=== PATIENT | female | born 1995 | race Caucasian/White ===

== ENCOUNTER 2021-03-15 14:07 | Outpatient (REF) | payer OTHER, SELFPAY ==
[2021-03-15 15:05] LABS: Influenza A PCR NEGATIVE (Negative); Influenza B PCR NEGATIVE (Negative); Resp Syncy Virus RNA Qual PCR NEGATIVE (Negative); SARS COV2 PCR INHOUSE NEGATIVE (Negative)
== END 2021-03-15 14:08 | disposition home or self-care (01) ==
LOC: HO.LNP 14:07
PROVIDERS: Visit Provider Physician Assistant Medical
DX: J06.9 Acute upper respiratory infection, unspecified (principal); Z20.822 Contact with and (suspected) exposure to COVID-19
CPT/HCPCS: 0241U

== ENCOUNTER 2022-09-17 15:46 | Emergency (ER) | payer SELFPAY ==
--- NOTE | ~2022-09-17 | CT_ITS ---
EXAMINATION: CT head/brain wo IV con CLINICAL INFORMATION: Reason for Exam R sided hearing losss new onset headache COMPARISON: None. TECHNIQUE: Contiguous axial imaging was performed from the skull base to vertex without intravenous contrast. Sagittal and coronal reformatted images were obtained. This CT examination was performed using dose optimization techniques as appropriate, variously including the following: * Automated exposure control * Adjustment of mA and/or kV according to patient size (this includes techniques or standardized protocols for targeted exams where dose is matched to indication/reason for exam; i.e. extremities or head) Use of iterative reconstruction technique DLP: 671.92 mGy-cm FINDINGS: No acute osseous or soft tissue abnormality. Partial opacification of the right mastoid air cells and middle ear cavity. There is no evidence of acute intracranial hemorrhage or territorial infarction. No abnormal mass effect or midline shift is seen. Marie to white matter differentiation is well preserved. No extra-axial fluid collections are identified. No hydrocephalus. No significant volume loss. There is no abnormal attenuation within the brain parenchyma. CT/CT head/brain wo IV con IMPRESSION: 1. No acute intracranial abnormality including hemorrhage, mass effect, hydrocephalus, or acute territorial edematous infarction. 2. Partial opacification of the right mastoid and middle ear cavity. Correlate clinically for otomastoiditis.
[2022-09-17 16:21] VITALS: BP 141/89; PULSE 85; RESP 18; TEMP 36.8; O2SAT 96; BMI 51.6
--- NOTE | 2022-09-17 16:22 | ED_ITS ---
HPI - Ear Problem General Chief complaint: Ear Problems <DARI Holliday Last Filed: 09/17/22 19:08> Stated complaint: cant hear out right ear <DARI Holliday Last Filed: 09/17/22 19:08> Time Seen by Provider: 09/17/22 19:40 <DARI Holliday Last Filed: 09/17/22 19:08> Source: patient <DARI Light Last Filed: 09/18/22 00:11> Mode of arrival: ambulatory <DARI Light Last Filed: 09/18/22 00:11> Limitations: no limitations <DARI Light Last Filed: 09/18/22 00:11> History of Present Illness HPI Narrative: This is a 27-year-old female presenting to the emergency department for evaluation of headaches for the past 2 weeks that have been intermittent in nature as well as severe right-sided ear pain x2 days worsening. Patient reports ear pain is worse with movement of here and she feels like her ear is muffled. This is never happened to her before. Reports that headaches are localized to the occipital region of head particularly the left side and travel forward towards her forehead, describes some is severe, throbbing and tells me she has to take ibuprofen a few times a day, she has never had migraines before. No head trauma. Not on blood thinners. Denies fevers, chills, chest pain, shortness of breath, visual disturbances, weakness, nausea, vomiting, abdominal pain, URI symptoms. <DARI Light Last Filed: 09/18/22 00:11> Related Data Home medications: Previous Rx's Medication Instructions Recorded ciprofloxacin HCl 500 mg tablet 500 mg PO BID 10 days #20 tabs 09/18/22 <DARI Holliday Last Filed: 09/17/22 19:08> Allergies/adverse reactions: Allergies Allergy/AdvReac Type Severity Reaction Status Date / Time metoclopramide [From Reglan] Allergy pain in Verified 03/15/21 12:44 arm and trouble breathing <DARI Holliday Last Filed: 09/17/22 19:08> Review of Systems Review of Systems: Constitutional : No Weight loss, No Fever, No Chills, No Fatigue, No Malaise ENT/Mouth : No sore throat, No Rhinorrhea, + ear pain Eyes: No Eye Pain, No Swelling, No Redness Cardiovascular : No Chest Pain, No SOB, No Dyspnea on Exertion, No Orthopnea, No Edema, No Palpitations Respiratory : No Cough, No Sputum, No Wheezing Gastrointestinal : No Nausea, No Vomiting, No Diarrhea, No Constipation, No abdominal Pain, No Hematochezia, No Melena Genitourinary : No Dysuria, No Urinary Frequency, No Hematuria, Musculoskeletal : No joint pain, No Myalgias, No Joint Swelling Skin : No Skin Lesions, No rash Neuro : No Weakness, No Numbness, No Dizziness, No Headache Psych : No Anxiety/Panic, No Depression All other systems reviewed and are negative <DARI Light - Last Filed: 09/18/22 00:11> Yes all other systems are reviewed and are negative <DARI Light - Last Filed: 09/18/22 00:11> [facility] Past Medical History Attestation statement: The following information was validated with the patient. <DARI Light - Last Filed: 09/18/22 00:11> Source: old records reviewed and nursing notes reviewed <DARI Light - Last Filed: 09/18/22 00:11> Social History Social History: Social History Alcohol intake: never Smoked in Last 30 Days: No Use of substances other than those prescribed or required for medical reasons: No Advance Directives: No Advance Directives Information Provided: No <DARI Holliday Last Filed: 09/17/22 19:08> Physical Exam Vital Signs: Vital Signs: Last Vital Signs Temp 98.2 F 09/17/22 16:21 Pulse 82 09/17/22 19:45 Resp 16 09/17/22 19:45 BP 114/87 09/17/22 19:45 Pulse Ox 98 09/17/22 19:45 O2 Del Method Room Air 09/17/22 19:45 BMI result Body Mass Index 51.6 <DARI Holliday Last Filed: 09/17/22 19:08> Vital Signs: Last Vital Signs Temp 98.2 F 09/17/22 16:21 Pulse 82 09/17/22 19:45 Resp 16 09/17/22 19:45 BP 114/87 09/17/22 19:45 Pulse Ox 98 09/17/22 19:45 O2 Del Method Room Air 09/17/22 19:45 BMI result Body Mass Index 51.6 vss <DARI Light - Last Filed: 09/18/22 00:11> Appearance: Alert.? Oriented X3.? No acute distress.? Head: Normocephalic, atraumatic, no step-offs or deformities Eyes: Pupils equal, round and reactive to light.? ENT: Pharynx normal.? Patient's right ear with small all area of dry ear wax visualize above the tympanic membrane, erythematous ear canal and discomfort with palpation/manipulation of external ear. Normal left ear. No mastoid tenderness bilaterally. Decreased gross hearing to right ear when compared to left. Neck: Normal inspection.? Neck supple.? CVS: Normal heart rate and rhythm.? Pulses normal.? Respiratory: No respiratory distress.? Breath sounds normal.? Abdomen: Soft and nontender.? Skin: Skin warm and dry.? Normal skin color.? Normal skin turgor.? Extremities: No lower extremity edema.? No calf ttp. 5/5 strength to bilateral upper and lower extremities Neuro: Oriented X 3.? No motor deficit.? No sensory deficit. CN 2-12 intact . Ambulating with steady gait normal coordination. Normal rapid alternating movements, normal [id number]-[id number]-mmzz and yyez-[id number]-yzrg. <DARI Light - Last Filed: 09/18/22 00:11> Course Course Course Narrative: RME--27yo F c/o R ear pain x yesterday with hearing loss since this AM. +tragus pain with canal swelling and visible wax vs ?bug. TM cloudy Patient will need ear irrigated for potential FB <DARI Holliday - Last Filed: 09/17/22 19:08> Reevaluation(s) Reevaluation #1: CT scan showing partial opacification of the right mastoid and middle ear cavity correlating with otomastoiditis. This is the year that patient is compl aining of pain to. I did discuss this case with my attending recommended this likely will require IV antibiotics. Discussed with the hospitalist who tells me that this will require higher level of care in a facility that has ears nose and throat. Call out to [facility] however [facility] at capacity and closed to transfers. Call out to [facility] pending call back <DARI Light - Last Filed: 09/18/22 00:11> Time: 23:00 <DARI Light - Last Filed: 09/18/22 00:11> Reevaluation #2: [facility] closed to transfers. I did speak to the [facility] and requested an ears Nose and Throat consult and was able to speak to Dr. Painter who recommends treating this with ciprofloxacin 500 mg p.o. b.i.d., he recommends outpatient ENT follow-up. No need for hospital admission for IV antibiotics. He states ciprofloxacin will cover for Staph, strep as well as Pseudomonas. I did go over CT results with him as well as exam findings. Patient will be discharged at this time. Will give her ENT follow-up. Educated on worrisome signs and sym ptoms and when to return. Patient verbalizes understanding. I did educate patient on black box warnings of ciprofloxacin. Verbalizes understanding <DARI Light - Last Filed: 09/18/22 00:11> Time: 00:11 <DARI Light - Last Filed: 09/18/22 00:11> Medications Administered Discontinued Medications Generic Name Dose Route Start Last Admin Trade Name Freq PRN Reason Stop Dose Admin Sodium Chloride 1,000 mls @ 999 mls/hr 09/17/22 21:30 09/17/22 21:48 Ns IV 09/17/22 22:30 Not Given .Q1H1M LUIS <DARI Holliday - Last Filed: 09/17/22 19:08> Medications Administered Discontinued Medications Generic Name Dose Route Start Last Admin Trade Name Freq PRN Reason Stop Dose Admin Sodium Chloride 1,000 mls @ 999 mls/hr 09/17/22 21:30 09/17/22 21:48 Ns IV 09/17/22 22:30 Not Given .Q1H1M LUIS <DARI Light - Last Filed: 09/18/22 00:11> Medical Decision Making Medical Decision Making [facility] Narrative: 27 year old female presents w/ new onset headaches x few weeks and ear pain. PE w/ Patient's right ear with small all area of dry ear wax visualize above the tympanic membrane, erythematous ear canal and discomfort with palpation/manipulation of external ear. Normal left ear. No mastoid tenderness bilaterally. Decreased gross hearing to right ear when compared to left. Concerns for mastoiditis and otitis externa. Likley typical headache unlikley ICH, Stroke, posterior stroke. Will rule out intra cranial mass. Plan- imaging of head <DARI Light - Last Filed: 09/18/22 00:11> Differential Diagnosis Differential Diagnoses: The differential diagnosis associated with the presentation includes <DARI Light - Last Filed: 09/18/22 00:11> Concerns for mastoiditis and otitis externa. Likley typical headache unlikley ICH, Stroke, posterior stroke. Will rule out intra cranial mass. <DARI Light - Last Filed: 09/18/22 00:11> Admission/Observation Consideration of admission/observation: Escalation of care including admission/observation considered <DARI Light - Last Filed: 09/18/22 00:11> possible if mastoiditis <DARI Light - Last Filed: 09/18/22 00:11> Consult Healthcare Provider Management of the patient was discussed with: Hospitalist (Hospitalist who do not feel as though patient can stay in this facility ) and Video Game Script Writer (Dr. Painter ENT [facility] [place] ) <DARI Light - Last Filed: 09/18/22 00:11> Lab Data [facility] Lab Attestation statement: I reviewed the patient's lab results. <DARI Light - Last Filed: 09/18/22 00:11> Result Diagrams: 09/17/22 22:24 09/17/22 22:24 <DARI Holliday - Last Filed: 09/17/22 19:08> Labs: Lab Results 09/17/22 09/17/22 09/17/22 Range/Units 22:24 22:24 22:24 WBC 8.7 (4.8-10.8) X10*3/uL RBC 4.32 (4.20-5.50) X10*6/uL Hgb 12.7 (12.0-16.0) g/dl Hct 38.3 (37.0-47.0) % MCV 88.7 (80.0-98.0) fL MCH 29.4 (27.0-33.0) pg MCHC 33.2 (31.0-35.0) g/dl RDW 13.1 (11.0-16.0) % Plt Count 205 (160-400) X10*3/uL MPV 10.9 (9.4-12.3) fL Immature Gran % (Auto) 0.3 (0.0-0.4) % Neut % (Auto) 65.2 (45-73) % Lymph % (Auto) 24.3 (20-40) % [place] % (Auto) 7.9 (2-11) % Eos % (Auto) 1.8 (0-4) % Baso % (Auto) 0.5 (0-2) % Lymph # (Auto) 2.1 (1.2-4.9) X10*3/uL [place] # (Auto) 0.7 (0.1-1.2) X10*3/uL Eos # (Auto) 0.2 (0.0-0.4) X10*3/uL Baso # (Auto) 0.0 (0.0-0.2) X10*3/uL Abs Immat Gran (auto) 0.03 (0.00-0.03) X10*3/uL Absolute Neuts (auto) 5.7 (2.0-8.3) x10*3/uL Absolute Nucleated RBC 0.000 (0.0-0.012) X10*3/uL Nucleated RBC % (auto) 0.0 (0.0-0.2) /100WBC Sodium 139 (135-145) mmol/L Potassium 3.9 (3.3-5.1) mmol/L Chloride 104 (96-108) mmol/L Carbon Dioxide 25 (22-29) mmol/L Anion Gap 14 (12-20) BUN 11 (9-16) mg/dL Creatinine 0.77 (0.5-1.4) mg/dL Estim Creat Clear Calc 143.2 Estimated GFR > 60 Random Glucose 80 (60-115) mg/dL Lactic Acid 0.9 (0.5-2.0) mmol/L Calcium 9.2 (8.4-10.2) mg/dL Total Bilirubin 0.7 (0.0-1.0) mg/dL AST 20 (5-31) U/L ALT 20 (0-31) U/L Alkaline Phosphatase 82 (39-117) U/L Total Protein 6.7 (6.5-8.0) g/dL Albumin 4.1 (3.5-5.0) g/dL <DARI Holliday - Last Filed: 09/17/22 19:08> Lab Results 09/17/22 09/17/22 09/17/22 Range/Units 22:24 22:24 22:24 WBC 8.7 (4.8-10.8) X10*3/uL RBC 4.32 (4.20-5.50) X10*6/uL Hgb 12.7 (12.0-16.0) g/dl Hct 38.3 (37.0-47.0) % MCV 88.7 (80.0-98.0) fL MCH 29.4 (27.0-33.0) pg MCHC 33.2 (31.0-35.0) g/dl RDW 13.1 (11.0-16.0) % Plt Count 205 (160-400) X10*3/uL MPV 10.9 (9.4-12.3) fL Immature Gran % (Auto) 0.3 (0.0-0.4) % Neut % (Auto) 65.2 (45-73) % Lymph % (Auto) 24.3 (20-40) % [place] % (Auto) 7.9 (2-11) % Eos % (Auto) 1.8 (0-4) % Baso % (Auto) 0.5 (0-2) % Lymph # (Auto) 2.1 (1.2-4.9) X10*3/uL [place] # (Auto) 0.7 (0.1-1.2) X10*3/uL Eos # (Auto) 0.2 (0.0-0.4) X10*3/uL Baso # (Auto) 0.0 (0.0-0.2) X10*3/uL Abs Immat Gran (auto) 0.03 (0.00-0.03) X10*3/uL Absolute Neuts (auto) 5.7 (2.0-8.3) x10*3/uL Absolute Nucleated RBC 0.000 (0.0-0.012) X10*3/uL Nucleated RBC % (auto) 0.0 (0.0-0.2) /100WBC Sodium 139 (135-145) mmol/L Potassium 3.9 (3.3-5.1) mmol/L Chloride 104 (96-108) mmol/L Carbon Dioxide 25 (22-29) mmol/L Anion Gap 14 (12-20) BUN 11 (9-16) mg/dL Creatinine 0.77 (0.5-1.4) mg/dL Estim Creat Clear Calc 143.2 Estimated GFR > 60 Random Glucose 80 (60-115) mg/dL Lactic Acid 0.9 (0.5-2.0) mmol/L Calcium 9.2 (8.4-10.2) mg/dL Total Bilirubin 0.7 (0.0-1.0) mg/dL AST 20 (5-31) U/L ALT 20 (0-31) U/L Alkaline Phosphatase 82 (39-117) U/L Total Protein 6.7 (6.5-8.0) g/dL Albumin 4.1 (3.5-5.0) g/dL <DARI Light - Last Filed: 09/18/22 00:11> Independent Interpretation I performed an independent interpretation of an: CT Scan ( CT/CT head/brain wo IV con IMPRESSION: 1. No acute intracranial abnormality including hemorrhage, mass effect, hydrocephalus, or acute territorial edematous infarction. 2. Partial opacification of the right mastoid and middle ear cavity. Correlate clinically for otomastoiditis.) <DARI Light - Last Filed: 09/18/22 00:11> Radiology Impression Discussion of test interpretation with radiology: I have reviewed the radiologist's reading. <DARI Light - Last Filed: 09/18/22 00:11> Core Measures AMI core measures followed: Yes <DARI Light Last Filed: 09/18/22 00:11> Measure exclusions: not indicated <DARI Light - Last Filed: 09/18/22 00:11> Critical Care Time Critical Care Time Critical Care Time: No <DARI Light Last Filed: 09/18/22 00:11> Discharge Plan Discharge Clinical Impression: Decreased hearing of right ear, Excessive cerumen in right ear canal, Otitis externa, Otitis media <DARI Holliday Last Filed: 09/17/22 19:08> Patient Disposition: Home, Self-Care <DARI Holliday Last Filed: 09/17/22 19:08> Additional Instructions: Take your medications as prescribed. If you were prescribed antibiotics today, it is important that you take your medication to their entirety, do not skip any doses, do not finish them early. Follow-up with your primary care provider this week. Follow up with ENT Return to the emergency department with new or worsening symptoms. Such as fevers, chills, chest pain, shortness of breath, nausea, vomiting, dizziness, headache, vision changes, lethargy In case of emergency call 911 You can use [id number]-[id number] Debrox for wax in your ear. Please follow-up with ear nose and throat doctor. Your CT scan of head showed the findings listed below. CT/CT head/brain wo IV con IMPRESSION: ? 1.? No acute intracranial abnormality including hemorrhage, mass effect, hydrocephalus, or acute territorial edematous infarction. ? 2.? Partial opacification of the right mastoid and middle ear cavity. Correlate clinically for otomastoiditis. <DARI Holliday Last Filed: 09/17/22 19:08> Prescriptions: New ciprofloxacin HCl 500 mg tablet 500 mg PO BID 10 Days Qty: 20 0RF <DARI Holliday Last Filed: 09/17/22 19:08> Referrals: Mikhail Calzada [Physician] - 2 days Physician,None [Primary Care Provider] - 2 days <DARI Holliday Last Filed: 09/17/22 19:08> Stand Alone Forms: Work/School Release <DARI Holliday - Last Filed: 09/17/22 19:08>
[2022-09-17 19:45] VITALS: BP 114/87; PULSE 82; RESP 16; O2SAT 98
--- NOTE | 2022-09-17 19:45 | PC.NURSE ---
Patient has noted pain on and off to her right ear for the past 2 weeks. Pain noted to be increased last night and this morning when patient woke up she noted that her hearing seemed muffled. Upon assessment the ear drum seems to be inflammed and there is some debris noted within the ear. Patient sitting calm and cooperatively on stretcher with SO at bedside.
--- NOTE | 2022-09-17 21:48 | PC.NURSE ---
Pt refusing IV and IVF. Provider aware.
[2022-09-17 22:31] LABS: Basophils Percent Auto 0.5 % (0-2); Eosinophils Absolute Auto 0.2 X10*3/uL (0.0-0.4); Eosinophils Percent Auto 1.8 % (0-4); Hematocrit 38.3 % (37.0-47.0); Hemoglobin 12.7 g/dl (12.0-16.0); Imm Gran Abs Auto 0.03 X10*3/uL (0.00-0.03); Imm Gran Pct Auto 0.3 % (0.0-0.4); Lymphocytes Absolute Auto 2.1 X10*3/uL (1.2-4.9); Lymphocytes Percent Auto 24.3 % (20-40); MANUAL DIFF FLAG NO; Mean Corpuscular HGB Conc 33.2 g/dl (31.0-35.0); Mean Corpuscular Hemoglobin 29.4 pg (27.0-33.0); Mean Corpuscular Volume 88.7 fL (80.0-98.0); Mean Platelet Volume 10.9 fL (9.4-12.3); Monocytes Absolute Auto 0.7 X10*3/uL (0.1-1.2); Monocytes Percent Auto 7.9 % (2-11); Neutrophils Absolute Auto 5.7 x10*3/uL (2.0-8.3); Neutrophils Percent Auto 65.2 % (45-73); Platelet Count 205 X10*3/uL (160-400); Red Blood Count 4.32 X10*6/uL (4.20-5.50); Red Cell Distribution Width 13.1 % (11.0-16.0); White Blood Count 8.7 X10*3/uL (4.8-10.8)
--- NOTE | 2022-09-17 22:33 | MHC.EDTECH ---
PROVIDER REQUESTED TRANSFER FOR PT TO GO TO [facility] FOR MASTOIDITIS. [facility] DECLINED THEY ARE ONLY ACCEPTING STEMI, STROKE, OB, AND PEDI. [facility] WAS THEN REACHED. [facility] IS GOING TO GIVE A CALL BACK.
[2022-09-17 23:08] LABS: Lactic Acid 0.9 mmol/L (0.5-2.0)
[2022-09-17 23:13] LABS: Alanine Aminotransferase 20 U/L (0-31); Albumin Level 4.1 g/dL (3.5-5.0); Alkaline Phosphatase 82 U/L (39-117); Anion Gap 14 (12-20); Aspartate Amino Transferase 20 U/L (5-31); Bilirubin Total 0.7 mg/dL (0.0-1.0); Blood Urea Nitrogen 11 mg/dL (9-16); Calcium 9.2 mg/dL (8.4-10.2); Carbon Dioxide 25 mmol/L (22-29); Chloride 104 mmol/L (96-108); Creatinine Clr Calc Pharmacy 143.2; Estimated Glomerular Filt Rate > 60; Glucose Random 80 mg/dL (60-115); Potassium 3.9 mmol/L (3.3-5.1); Sodium 139 mmol/L (135-145); Total Protein 6.7 g/dL (6.5-8.0)
[2022-09-18 00:44] VITALS: BP 136/78; PULSE 84; RESP 16; O2SAT 99
== END 2022-09-18 00:40 | disposition home or self-care (01) ==
PROVIDERS: Physician Assistant; Emergency Provider Student in an Organized Health Care Education/Training Program
DX: R51.9 Headache, unspecified (principal); H61.23 Impacted cerumen, bilateral; H60.93 Unspecified otitis externa, bilateral; H66.93 Otitis media, unspecified, bilateral; Z79.899 Other long term (current) drug therapy
CPT/HCPCS: 36415; 70450; 80053; 83605; 85025; 87040; 99284

== ENCOUNTER 2022-11-21 23:44 | Emergency (ER) | payer OTHER, SELFPAY ==
[2022-11-21 23:48] VITALS: BP 150/79; PULSE 103; RESP 18; TEMP 36.6; O2SAT 97; BMI 49.4
--- NOTE | 2022-11-21 23:51 | ECG_ITS ---
Test Reason : CHEST TIGHTNESS Blood Pressure : / mmHG Vent. Rate : 086 BPM Atrial Rate : 086 BPM P-R Int : 144 ms QRS Dur : 094 ms QT Int : 366 ms P-R-T Axes : 042 058 023 degrees QTc Int : 437 ms Normal sinus rhythm Normal ECG No previous ECGs available Referred By: Generic ED Physician Electronically Signed By:ABBEY SCHULZ MD
[2022-11-22 00:05] VITALS: BP 150/79; PULSE 84; RESP 14; O2SAT 100
[2022-11-22 00:16] LABS: MANUAL DIFF FLAG NO
[2022-11-22 00:24] LABS: Basophils Percent Auto 0.4 % (0-2); Eosinophils Absolute Auto 0.2 X10*3/uL (0.0-0.4); Eosinophils Percent Auto 2.2 % (0-4); Hemoglobin 12.4 g/dl (12.0-16.0); Imm Gran Abs Auto 0.02 X10*3/uL (0.00-0.03); Imm Gran Pct Auto 0.2 % (0.0-0.4); Lymphocytes Absolute Auto 2.4 X10*3/uL (1.2-4.9); Lymphocytes Percent Auto 28.7 % (20-40); Mean Corpuscular HGB Conc 33.5 g/dl (31.0-35.0); Mean Corpuscular Hemoglobin 28.9 pg (27.0-33.0); Mean Corpuscular Volume 86.2 fL (80.0-98.0); Mean Platelet Volume 11.2 fL (9.4-12.3); Monocytes Absolute Auto 0.7 X10*3/uL (0.1-1.2); Monocytes Percent Auto 8.7 % (2-11); Neutrophils Absolute Auto 5.1 x10*3/uL (2.0-8.3); Neutrophils Percent Auto 59.8 % (45-73); Platelet Count 199 X10*3/uL (160-400); Red Blood Count 4.29 X10*6/uL (4.20-5.50); Red Cell Distribution Width 13.3 % (11.0-16.0); White Blood Count 8.5 X10*3/uL (4.8-10.8)
[2022-11-22 00:29] LABS: Anion Gap 15 (12-20); Blood Urea Nitrogen 14 mg/dL (9-16); Calcium 9.7 mg/dL (8.4-10.2); Carbon Dioxide 22 mmol/L (22-29); Chloride 104 mmol/L (96-108); Creatinine Clr Calc Pharmacy 124.8; Estimated Glomerular Filt Rate > 60; Glucose Random 88 mg/dL (60-115); Sodium 137 mmol/L (135-145)
--- NOTE | 2022-11-22 00:29 | ED_ITS ---
HPI - Chest Pain General Chief Complaint: Chest Pain Stated Complaint: Chest pain Time Seen by Provider: 11/22/22 00:18 Source: patient Mode of arrival: ambulatory Limitations: no limitations History of Present Illness HPI narrative: With no significant past medical history complaining of mid chest pain for last 1 week which is constant and dull pain no relation with exertion no palpitation no shortness of breath patient mother had a heart attack at age of 28 no history of blood clots, no history of control use Related Data Previous Rx's Medication Instructions Recorded ciprofloxacin HCl 500 mg tablet 500 mg PO BID 10 days #20 tabs 09/18/22 ibuprofen 600 mg tablet 600 mg PO Q6H PRN fever or pain 11/22/22 #30 tabs Allergies Allergy/AdvReac Type Severity Reaction Status Date / Time metoclopramide [From Reglan] Allergy pain in Verified 03/15/21 12:44 arm and trouble breathing Review of Systems Review of Systems: Yes all other systems are reviewed and are negative [facility] Social History Social History Alcohol intake: never Smoked in Last 30 Days: Yes Use of substances other than those prescribed or required for medical reasons: No Advance Directives: No Advance Directives Information Provided: No Patient : No Physical Exam Vital Signs: Vital Signs: Last Vital Signs Temp 98 F 11/21/22 23:48 Pulse 84 11/22/22 00:05 Resp 14 11/22/22 00:05 BP 150/79 H 11/22/22 00:05 Pulse Ox 100 11/22/22 00:05 O2 Del Method Room Air 11/22/22 00:05 BMI result Body Mass Index 49.4 Appearance: Alert. Oriented X3. No acute distress. ENT: Pharynx normal. Oral Mucosa moist Neck: Normal inspection. Neck supple. CVS: Normal heart rate and rhythm. Pulses normal. Respiratory: No respiratory distress. Equal air entry bilateral, no w heezing/rales/rhonchi Abdomen: Soft and nontender. Bowel sounds are present, Skin: Skin warm and dry. Normal skin color. Normal skin turgor. Extremities: No lower extremity edema. No calf tenderness Neuro: Oriented X 3. No motor deficit. Medical Decision Making Medical Decision Making MDM Narrative: Patient has atypical pain for last 1 week no risk factors heart score of 0 likely musculoskeletal discharge patient home on ibuprofen labs EKG normal Lab Data [facility] Lab Attestation statement: I reviewed the patient's lab results. 11/22/22 00:12 11/22/22 00:12 Labs: Lab Results 11/22/22 11/22/22 11/22/22 Range/Units 00:12 00:12 00:12 WBC 8.5 (4.8-10.8) X10*3/uL RBC 4.29 (4.20-5.50) X10*6/uL Hgb 12.4 (12.0-16.0) g/dl Hct 37.0 (37.0-47.0) % MCV 86.2 (80.0-98.0) fL MCH 28.9 (27.0-33.0) pg MCHC 33.5 (31.0-35.0) g/dl RDW 13.3 (11.0-16.0) % Plt Count 199 (160-400) X10*3/uL MPV 11.2 (9.4-12.3) fL Immature Gran % (Auto) 0.2 (0.0-0.4) % Neut % (Auto) 59.8 (45-73) % Lymph % (Auto) 28.7 (20-40) % [place] % (Auto) 8.7 (2-11) % Eos % (Auto) 2.2 (0-4) % Baso % (Auto) 0.4 (0-2) % Lymph # (Auto) 2.4 (1.2-4.9) X10*3/uL [place] # (Auto) 0.7 (0.1-1.2) X10*3/uL Eos # (Auto) 0.2 (0.0-0.4) X10*3/uL Baso # (Auto) 0.0 (0.0-0.2) X10*3/uL Abs Immat Gran (auto) 0.02 (0.00-0.03) X10*3/uL Absolute Neuts (auto) 5.1 (2.0-8.3) x10*3/uL Absolute Nucleated RBC 0.000 (0.0-0.012) X10*3/uL Nucleated RBC % (auto) 0.0 (0.0-0.2) /100WBC Sodium 137 (135-145) mmol/L Potassium 4.0 (3.3-5.1) mmol/L Chloride 104 (96-108) mmol/L Carbon Dioxide 22 (22-29) mmol/L Anion Gap 15 (12-20) BUN 14 (9-16) mg/dL Creatinine 0.86 (0.5-1.4) mg/dL Estim Creat Clear Calc 124.8 Estimated GFR > 60 Random Glucose 88 (60-115) mg/dL Calcium 9.7 (8.4-10.2) mg/dL Troponin I High Sens < 2.7 (<3.5-17.0) ng/L Discharge Plan Discharge Clinical Impression: Chest pain Patient Disposition: Home, Self-Care Instructions: Chest Wall Pain (ED) Additional Instructions: Your chest pain is likely musculoskeletal Take ibuprofen for pain Prescriptions: New ibuprofen 600 mg tablet 600 mg PO Q6H PRN (Reason: fever or pain) Qty: 30 0RF No Action ciprofloxacin HCl 500 mg tablet 500 mg PO BID 10 Days Qty: 20 0RF
[2022-11-22 00:38] LABS: Troponin-I High Sensitivity < 2.7 ng/L (<3.5-17.0)
== END 2022-11-22 01:14 | disposition home or self-care (01) ==
PROVIDERS: Emergency Provider Internal Medicine
DX: R07.89 Other chest pain (principal); Z79.899 Other long term (current) drug therapy
CPT/HCPCS: 36415; 80048; 84484; 85025; 93005; 99283; 99285